=== PATIENT | male | born 1970 | race Caucasian/White ===

== ENCOUNTER 2022-08-30 06:28 | Day surgery (SDC) | payer MEDICAID ==
[~2022-08-30] VITALS: Ht 162.6 cm; Wt 68.0 kg
[2022-08-30] MEDS ORDERED: ALBUMIN HUMAN 25% 50 ML IV SCH (08:09)
[2022-08-30 10:08] LABS: APPEARANCE,SPUN,BODY FLUID CLEAR (CLEAR); APPEARANCE,UNSPUN,BODY FLUID CLEAR (CLEAR); SPECIMENTYPE,BODY FLUID PARACENTESIS
[2022-08-30 10:09] LABS: COLOR,BODY FLUID YELLOW (LT YELLOW); TOTAL VOLUME,BODY FLUID 35 mL
[2022-08-30] MEDS ORDERED: ACETAMINOPHEN EXTRA STRENGTH 500 MG TAB PO PRN (10:10)
[2022-08-30] MEDS ORDERED: ACETAMINOPHEN EXTRA STRENGTH 500 MG TAB ONE (10:15)
[2022-08-30] MEDS ORDERED: ACETAMINOPHEN EXTRA STRENGTH 500 MG TAB PO ONE (10:20)
[2022-08-30 10:33] LABS: GLUCOSE,BODY FLUID 96 mg/dL
[2022-08-30 14:53] LABS: RBC, BODY FLUID 72 /cu. mm.; WBC, BODY FLUID 0 /cu. mm.
== END 2022-08-30 10:28 | disposition home or self-care (01) ==
LOC: EDSEX → MDS 06:28 → MMU 06:29 → MDS 10:28
PROVIDERS: ATTEND Internal Medicine Gastroenterology
DX: K70.31 Alcoholic cirrhosis of liver with ascites (principal); Z20.822 Contact with and (suspected) exposure to COVID-19
CPT/HCPCS: 36415; 76705; 82945; 84157; 87070; 87075; 87116; 87190; 87206; 89051; P9046; Q0092